=== PATIENT | female | born 1955 | race Caucasian/White ===

== ENCOUNTER 2018-10-09 12:49 | Emergency (ER) | payer OTHER, MEDICARE ==
[~2018-10-09] VITALS: Ht 157.5 cm; Wt 65.8 kg
[~2018-10-09 12:49] MED LIST: CYCL10TA9 PO; IBUP-1780 PO; LVT.1T PO; PRM1O30 PR
--- OUTSIDE RECORDS SUMMARY | 2018-10-09 12:56 | XMS REPORT | Continuity of Care Document ---
Author Organization Unknown Address Unknown Allergies Active Description Code Type Severity Reaction Onset Reported/Identified Relationship to Patient Clinical Status Yes metoprolol succinate [id number] Drug Allergy Unknown N/A 07/28/2011 Medications There is no data. Problems Date Dx Coded Attending Type Code Diagnosis Diagnosed By 07/28/2011 Ot 455.4 07/28/2011 Ot 455.5 07/28/2011 Ot 569.3 03/09/2015 ERNESTINE REGAN, MARIA DE JESUS R Ot I49.8 04/07/2015 ADDISON REGAN, TAE D Ot S00.03XA 04/07/2015 ADDISON REGAN, TAE D Ot S16.1XXA 04/07/2015 ADDISON REGAN, TAE D Ot S46.901A 04/07/2015 ADDISON REGAN, TAE D Ot W20.8XXA 04/07/2015 ADDISON REGAN, TAE D Ot Y99.0 04/07/2015 ERNESTINE REGAN, MARIA DE JESUS R Ot I49.8 04/08/2015 ERNESTINE REGAN, MARIA DE JESUS R Ot I49.8 04/14/2015 ERNESTINE REGAN, MARIA DE JESUS R Ot I49.8 Procedures There is no data. Results There is no data. Encounters ACCT No. Visit Date/Time Discharge Status Pt. Type Provider Facility Loc./Unit Complaint [id number] 06/08/2015 10:53:00 06/08/2015 23:59:59 CLS Outpatient REGGIE, EFREN ACQUISITION [employer] ESTIMATOR [facility] RAD IMPINGEMENT [id number] 05/27/2015 13:50:00 05/27/2015 23:59:59 CLS Outpatient REGGIE, EFREN ACQUISITION [employer] ESTIMATOR [facility] OCC [id number] 04/27/2015 09:46:00 04/27/2015 23:59:59 CLS Outpatient REGGIE, EFREN ACQUISITION [employer]ST ESTIMATOR [facility] OCC [id number] 04/13/2015 10:59:00 04/13/2015 23:59:59 CLS Outpatient REGGIE EFREN PRESCOTT [facility] OCC [id number] 04/07/2015 07:55:00 04/07/2015 09:37:00 DIS Emergency ADDISON REGAN, TAE [place] [facility] ER [id number] 02/16/2015 15:23:00 02/16/2015 23:59:59 CLS Outpatient ERNESTINE REGAN, MARIA DE JESUS Levine [facility] CARD [id number] 07/28/2011 16:58:00 Document Registration
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
--- NOTE | 2018-10-09 13:43 | Diagnostic Imaging Report ---
INDICATION: Pain. COMPARISON: 01/24/2008 TECHNIQUE: Two radiographs of the chest dated 10/09/2018. FINDINGS: The cardiac silhouette is within normal limits in size. No significant pulmonary vascular congestion. The lungs are clear without focal pulmonary opacity. No pleural effusion. No pneumothorax. No acute osseous abnormality. IMPRESSION: Stable-appearing examination without acute cardiopulmonary abnormality. Dictated by: Dictated on workstation # [id number]
[2018-10-09] MEDS ORDERED: TRAM-42 PO (13:54)
[2018-10-09 14:01] VITALS: BP 138/71
== END 2018-10-09 14:01 | disposition home or self-care (01) ==
LOC: EDUNIT# 12:49 → ER 12:51
DX: S20.219A Contusion of unspecified front wall of thorax, initial encounter (principal); E03.9 Hypothyroidism, unspecified; R40.2142 Coma scale, eyes open, spontaneous, at arrival to emergency department; R40.2252 Coma scale, best verbal response, oriented, at arrival to emergency department; R40.2362 Coma scale, best motor response, obeys commands, at arrival to emergency department; Z88.8 Allergy status to other drugs, medicaments and biological substances; V49.40XA Driver injured in collision with unspecified motor vehicles in traffic accident, initial encounter
CPT/HCPCS: 71046

== ENCOUNTER → 2019-05-30 | Outpatient (REF) ==
[~2019-05-30] MED LIST changes: +TRAM-42 PO
--- NOTE | 2019-05-30 15:17 | Diagnostic Imaging Report ---
INDICATION: Pain in the left leg. TIME OF EXAM: 2:53 PM FINDINGS: Frontal and lateral views of the left tibia and fibula were obtained. Alignment at the knee and ankle is normal. The tibia and fibula appear intact. No fractures are seen. There is a large plantar calcaneal spur. IMPRESSION: No acute bony abnormality is detected. Dictated by: Dictated on workstation # [id number]
--- NOTE | 2019-05-30 15:17 | Diagnostic Imaging Report ---
INDICATION: Twisted left knee. TIME OF EXAM: 2:50 p.m. EXAMINATION: Three views of the left knee were obtained. FINDINGS: Alignment is normal. Joint spaces are well maintained. The talar dome is smooth. No fracture, dislocation or effusion is detected. IMPRESSION: No acute bony abnormality is detected. Dictated by: Dictated on workstation # [id number]
== END | disposition home or self-care (01) ==
LOC: OCC 14:29 → MERGE 14:29
PROVIDERS: ATTEND Nurse Practitioner Family
CPT/HCPCS: 73562; 73590

== ENCOUNTER → 2019-06-07 | Outpatient (CLI) | payer OTHER, MEDICARE ==
--- NOTE | 2019-06-07 15:25 | Diagnostic Imaging Report ---
INDICATION: Left calf pain. TECHNIQUE: Left leg venous Doppler study is performed in the routine fashion with color flow Doppler and waveform analysis. FINDINGS: The left common femoral vein, profunda femoris vein, and SMV are patent and compressible. There is occlusive thrombus in the left popliteal vein and peroneal vein. The posterior tibial vein is patent. IMPRESSION: Occlusive deep vein thrombosis in the left popliteal vein with thrombus in the peroneal vein. Remaining structures are patent. Dictated by: Dictated on workstation # [id number]
== END ==
LOC: RAD 12:08
PROVIDERS: ATTEND Internal Medicine
DX: I82.432 Acute embolism and thrombosis of left popliteal vein (principal); I82.452 Acute embolism and thrombosis of left peroneal vein

== ENCOUNTER → 2019-06-21 | Outpatient (CLI) | payer OTHER, MEDICARE ==
--- NOTE | 2019-06-21 13:10 | Diagnostic Imaging Report ---
INDICATION: Left tibial plateau fracture. TIME OF EXAM: 10:58 a.m. COMPARISON: Correlation is made with prior radiograph from 05/30/2019. FINDINGS: There is some sclerosis transversely oriented through the proximal tibia, lateral side, consistent with healing tibial plateau fracture. No acute fracture line is seen. No significant depression of the plateau is identified. Articular surfaces are smooth. No joint effusion is identified. IMPRESSION: Healing lateral tibial plateau fracture. Dictated by: Dictated on workstation # [id number]
== END ==
LOC: ORTHO 10:38
PROVIDERS: ATTEND Orthopaedic Surgery
DX: S82.125D Nondisplaced fracture of lateral condyle of left tibia, subsequent encounter for closed fracture with routine healing (principal); X58.XXXD Exposure to other specified factors, subsequent encounter
CPT/HCPCS: 73562; 99203

== ENCOUNTER → 2019-07-10 | Outpatient (CLI) | payer OTHER, MEDICARE ==
--- NOTE | 2019-07-10 11:56 | Diagnostic Imaging Report ---
Indication: Left tibial plateau fracture. Follow-up Comparison made study from 06/21/2019 There is a depressed fracture of the lateral tibial plateau. Appearance of the fracture is unchanged from the previous study. There are no new or additional fractures seen. IMPRESSION: Stable left lateral tibial plateau fracture. Dictated by: Dictated on workstation # [id number]
== END ==
LOC: ORTHO 10:13
PROVIDERS: ATTEND Orthopaedic Surgery
DX: S82.125D Nondisplaced fracture of lateral condyle of left tibia, subsequent encounter for closed fracture with routine healing (principal); X58.XXXD Exposure to other specified factors, subsequent encounter
CPT/HCPCS: 73562

== ENCOUNTER → 2019-07-31 | Outpatient (CLI) | payer OTHER, MEDICARE ==
--- NOTE | 2019-07-31 12:41 | Diagnostic Imaging Report ---
EXAMINATION: Left knee radiographs, 3 views. COMPARISON: July 10, 2019. HISTORY: 64-year-old female, history of tibial plateau fracture. FINDINGS: There is no knee joint effusion. The previously noted transverse band of sclerosis in the proximal tibial epiphysis in the lateral aspect of the proximal tibia is significantly less visible which is most consistent with interval healing response. There is no offset of the articulating surface of the lateral tibial plateau or otherwise noted. The joint spaces are fairly well preserved. There is no particularly prominent focal soft tissue swelling. IMPRESSION: 1. The previously noted transverse band of sclerosis in the lateral aspect of the proximal tibial epiphysis is significantly less visible on the current exam, consistent with interval healing response. There is no offset of the articulating surface. 2. No knee joint effusion. Dictated by: Dictated on workstation # [id number]
== END ==
LOC: ORTHO 10:23
PROVIDERS: ATTEND Orthopaedic Surgery
DX: S82.125D Nondisplaced fracture of lateral condyle of left tibia, subsequent encounter for closed fracture with routine healing (principal); X58.XXXD Exposure to other specified factors, subsequent encounter
CPT/HCPCS: 73562

== ENCOUNTER → 2019-08-19 | Outpatient (CLI) | payer OTHER, MEDICARE | LOC: ORTHO 09:18 | PROVIDERS: ATTEND Orthopaedic Surgery | DX: S82.125D Nondisplaced fracture of lateral condyle of left tibia, subsequent encounter for closed fracture with routine healing (principal); X58.XXXD Exposure to other specified factors, subsequent encounter ==

== ENCOUNTER → 2020-08-20 | Outpatient (CLI) | payer OTHER, MEDICARE | LOC: LABNPT 06:47 | PROVIDERS: ATTEND Orthopaedic Surgery | DX: Z01.812 Encounter for preprocedural laboratory examination (principal); Z20.822 Contact with and (suspected) exposure to COVID-19 | CPT/HCPCS: 87635 ==